=== PATIENT | male | born 1980 | race Caucasian/White ===

== ENCOUNTER 2017-06-09 14:34 | Inpatient (IN) ==
--- NOTE | 2017-06-09 18:13 | Emergency Department Note ---
Disposition Clinical Impression: Facial cellulitis Disposition: Admitted As Inpatient Condition: Good Skin/Abscess/FB HPI Chief complaint: ED Skin/Abscess/Foreign Body Stated complaint: Lip And Facial Swelling from PCP/possible abscess Time Seen by Provider: 06/09/17 14:38 Source: patient Mode of arrival: private vehicle Limitations: no limitations Nursing Notes Reviewed: Yes Vital Signs Reviewed: Yes HPI Narrative: 36-year-old male history of type 2 diabetes who presents to the ER with a chief complaint of right facial swelling. Patient states that on Friday he noticed a bump on his right lip. He states there was some redness there. He was seen at urgent care and was given Keflex and clindamycin to take. He states that he had 4 doses and saw his primary care provider today who was concerned for possible abscess formation developing and sent him here for evaluation. Patient reports pain to the right upper lip and over his maxillary sinus. Denies fevers at home. No nausea vomiting or diarrhea. Has been compliant with his antibiotics. No other complaints. Pt Subjective Complaint: lesion Onset (ago): day(s) Location: face Severity: moderate Quality: aching Consistency: constant Improves with: none Worsens with: palpation Context: none Associated symptoms: Denies: fever, chills, nausea, vomiting Treatments prior to arrival: antibiotic Home Medications Medication Instructions Recorded Confirmed Exenatide Microspheres [Bydureon 2 mg SQ MO 04/27/15 06/09/17 Pen] Empagliflozin [Jardiance] 10 mg PO QAM 06/09/17 06/09/17 Gabapentin [Neurontin] 600 mg PO HS 06/09/17 06/09/17 Insulin Glargine,Hum.rec.anlog 76 units SQ BID 06/09/17 06/09/17 [Esha Rosenberg] Previous Rx's Medication Instructions Recorded Clindamycin HCl 150 mg PO QID #48 capsule 06/11/17 Clindamycin HCl 300 mg PO QID #48 capsule 06/11/17 Lactobacillus [Culturelle] 1 each PO BID #20 cap.sprink 06/11/17 Mupirocin 1 gm TP BID #1 oin.pf.charlotte 06/11/17 Allergies Allergy/AdvReac Type Severity Reaction Status Date / Time Penicillins [PCN] Allergy Hives Verified 06/09/17 15:36 All systems ED: reviewed and negative except as stated. Constitutional: Denies: fever, chills ENT ED: Denies: congestion Cardiovascular: Denies: chest pain Respiratory: Denies: dyspnea Gastrointestinal: Denies: abdominal pain, nausea, vomiting, diarrhea Past Medical History - Past Medical History Attestation: Yes The following information was validated with the patient. Source: patient Medical history: Reports: diabetes Surgical history: Reports: other Psychiatric history: Reports: depression - Social History Smoking Status: Current some day smoker Smokeless Tobacco Status: No Alcohol use: Reports: occasionally Drug use: Reports: none Physical Exam - General Limitations: no limitations General appearance: alert, in no apparent distress - Head Head exam: atraumatic, normocephalic, normal inspection - Eye Eye exam: Present: normal appearance, EOMI - ENT ENT exam: other (There is soft tissue swelling to the right upper lip and superior to this area.) - Neck Neck exam: Present: normal inspection, full ROM. Absent: tenderness - Chest Chest inspection: Present: normal inspection, symmetric chest wall rise - Respiratory Respiratory exam: Present: normal lung sounds bilaterally - Cardiovascular Cardiovascular exam: Present: regular rate, normal rhythm, normal heart sounds - Abdominal Exam Abdominal exam: Present: soft, Non-Tender. Absent: tenderness, distention, rigidity - Extremities Exam Extremities exam: Present: normal inspection, full ROM - Expanded Upper Extremity Exam Shoulder exam: Present: normal inspection, full ROM Arm exam: Present: normal inspection, full ROM Elbow exam: Present: normal inspection, full ROM Forearm/Wrist exam: Present: normal inspection, full ROM Hand exam: Present: normal inspection, full ROM - Expanded Lower Extremity Exam Hip/Pelvis exam: Present: normal inspection, full ROM Upper leg exam: Present: normal inspection, full ROM Knee exam: Present: normal inspection, full ROM Lower leg exam: Present: normal inspection, full ROM Ankle exam: Present: normal inspection, full ROM Foot/toe exam: Present: normal inspection, full ROM Neurovascular/Tendon exam: Absent: motor deficit, sensory deficit - Neurological Exam Neurological exam: Present: alert, other (GCS 15. Nonfocal neurologic exam.) - Psychiatric Psychiatric exam: Present: normal affect, normal mood - Skin Skin exam: Present: warm, dry, intact, normal color Course Course Narrative: Patient seen and examined. We did do a bedside ultrasound with soft tissue swelling of the right lip. Questionable slight fluid collection. We will obtain a CT scan of the face with IV contrast as well as basic labs. He will likely require admission for failed outpatient therapy and for IV antibiotics for facial cellulitis. - Reevaluation(s) Reevaluation #1: I discussed results of labs with the patient. We are currently waiting for CT scan. He is signed out to the transformer assembler team pending imaging results. Vital Signs Temperature 98.6 F 06/09/17 15:36 Pulse Rate 88 06/09/17 15:36 Respiratory Rate 20 06/09/17 15:36 Blood Pressure 158/93 06/09/17 15:36 O2 Sat by Pulse Oximetry 94 06/09/17 15:36 Temperature 98.7 F 06/11/17 17:12 Pulse Rate 82 06/11/17 17:12 Respiratory Rate 18 06/11/17 17:12 Blood Pressure 119/77 06/11/17 17:12 O2 Sat by Pulse Oximetry 96 06/11/17 17:12 Oxygen Delivery Oxygen Delivery Room Air Skin/Abscess/Foreign Body - MDM Narrative Medical decision making narrative: 36-year-old male presents to the ER due to right facial swelling. Swelling noted to his right upper lip. Afebrile here. There was concern by his PCP for underlying abscess. At the time of handoff the patient was pending a CT scan of his face. Final disposition by transformer assembler team. - Lab Data Lab results reviewed: Yes I reviewed the patient's lab results. Result diagrams: 06/10/17 07:21 06/10/17 05:51 Lab Results 06/09/17 06/09/17 06/09/17 Range/Units 17:45 18:13 18:13 WBC 12.2 H (4.3-11.1) K/mcL RBC 5.39 (4.19-5.50) M/mcL Hgb 15.5 (12.9-16.9) g/dL Hct 47.8 (37.5-50.1) % MCV 88.7 (83.0-100.0) fL MCH 28.8 (28.0-33.3) pg MCHC 32.4 (31.6-35.5) g/dL RDW 13.2 (11.5-14.5) % Plt Count 256 (140-400) K/mcL MPV 10.1 (9.4-12.4) fL Immature Gran % 0.4 (0-4) % Seg Neutrophils % 69.5 % Lymphocytes % 22.1 % Monocytes % 7.0 % Eosinophils % 0.6 % Basophils % 0.4 % Neutrophils # 8.5 (1.6-8.9) K/mcL Lymphocytes # 2.7 (0.6-4.6) K/mcL Monocytes # 0.9 (0.0-1.3) K/mcL Eosinophils # 0.1 (0.0-0.6) K/mcL Basophils # 0.1 (0.0-0.2) K/mcL Sodium 136 (136-145) mEq/L Potassium 4.3 (3.5-4.5) mEq/L Chloride 102 (98-109) mEq/L Carbon Dioxide 22 (19-29) mEq/L BUN 13 (8-26) mg/dL Creatinine 0.82 (0.72-1.25) mg/dL Est GFR ( Amer) > 60 (> 60) Est GFR (Non-Af Amer) > 60 (> 60) BUN/Creatinine Ratio 16 (6-26) Glucose 170 H (70-99) mg/dL Calculated Osmolality 286 (280-300) Calcium 9.8 (8.6-10.8) mg/dL Herpes Simplex Source R upper lip HSV I Not Detected (Not Detect) HSV II Not Detected (Not Detect)
--- NOTE | 2017-06-09 18:13 | Emergency Department Note ---
START Narrative - START START: I examined this patient and my medical decision-making was reviewed with the Resident Physician. I agree with the documented findings, disposition and treatment plan as described except to the extent set forth below. Patient eating of any swelling of his lip. Seen a couple days ago and started on clindamycin and Keflex. It is getting worse. Sinemet his PCP. No fever. Exam shows erythema and swelling to the right upper lip area. No drainage. Plan. Will check CT. Wound and HSV culture sent.
[2017-06-09 18:23] LABS: Basophils # 0.1 K/mcL (0.0-0.2); Basophils % 0.4 %; Eosinophils # 0.1 K/mcL (0.0-0.6); Eosinophils % 0.6 %; Hematocrit 47.8 % (37.5-50.1); Hemoglobin 15.5 g/dL (12.9-16.9); Immature Granulocytes % 0.4 % (0-4); Lymphocytes # 2.7 K/mcL (0.6-4.6); Lymphocytes % 22.1 %; Mean Corpuscular HGB Conc 32.4 g/dL (31.6-35.5); Mean Corpuscular Hemoglobin 28.8 pg (28.0-33.3); Mean Corpuscular Volume 88.7 fL (83.0-100.0); Mean Platelet Volume 10.1 fL (9.4-12.4); Monocytes # 0.9 K/mcL (0.0-1.3); Neutrophils # 8.5 K/mcL (1.6-8.9); Platelet Count 256 K/mcL (140-400); Red Blood Count 5.39 M/mcL (4.19-5.50); Red Cell Distribution Width 13.2 % (11.5-14.5); Segmented Neutrophils % 69.5 %
[2017-06-09 18:32] LABS: BUN/Creatinine Ratio 16 (6-26); Blood Urea Nitrogen 13 mg/dL (8-26); Calcium 9.8 mg/dL (8.6-10.8); Carbon Dioxide 22 mEq/L (19-29); Chloride 102 mEq/L (98-109); Glucose 170 mg/dL (70-99); Osmolality,Calculated 286 (280-300); Potassium 4.3 mEq/L (3.5-4.5); Sodium 136 mEq/L (136-145); eGFR For African Americans > 60 (> 60); eGFR For Non-African Americans > 60 (> 60)
[2017-06-09] MEDS ORDERED: Clindamycin 600 MG/50 ML 600 MG/50 ML IV.SOLN IVPB ONE (18:39)
[2017-06-09] MEDS ORDERED: Vancomycin 2,000 MG in D5% in Water 500 ML IVPB ONE (18:39)
--- NOTE | 2017-06-09 20:04 | Emergency Department Note ---
Disposition Clinical Impression: Facial cellulitis Disposition: Admitted As Inpatient Condition: Good Referrals: NONE,PCP [Primary Care Provider] - Forms: ED Satisfaction Letter Time of Disposition: 20:11 Skin/Abscess/FB HPI Chief complaint: ED Skin/Abscess/Foreign Body Stated complaint: Lip And Facial Swelling from PCP/possible abscess Time Seen by Provider: 06/09/17 14:38 Source: patient Mode of arrival: private vehicle Limitations: no limitations Nursing Notes Reviewed: Yes Vital Signs Reviewed: Yes HPI Narrative: Patient received on sogn-out from the day team. For complete history and physical, please refer to the note performed by Dr. Doran and Dr. Gaytan. In brief: Mr. Hayden, 36-year-old male, presents from home for evaluation of facial swelling and redness. This began 3 days ago and he was placed on Keflex and clindamycin. His symptoms have worsened and expanded despite compliance with these antibodies. He has been afebrile. History of type 2 diabetes. Pt Subjective Complaint: lesion Location: face Severity: moderate Improves with: none Worsens with: palpation Associated symptoms: Denies: fever, chills, nausea, vomiting Home Medications Medication Instructions Recorded Confirmed Exenatide Microspheres [Bydureon 2 mg SQ MO 04/27/15 06/09/17 Pen] Empagliflozin [Jardiance] 10 mg PO QAM 06/09/17 06/09/17 Gabapentin [Neurontin] 600 mg PO HS 06/09/17 06/09/17 Insulin Glargine,Hum.rec.anlog 76 units SQ BID 06/09/17 06/09/17 [Esha Rosenberg] Previous Rx's Medication Instructions Recorded Clindamycin HCl [Cleocin HCl] 300 mg PO TID #21 capsule 06/08/17 cephALEXin [Keflex] 500 mg PO TID #21 capsule 06/08/17 Allergies Allergy/AdvReac Type Severity Reaction Status Date / Time Penicillins [PCN] Allergy Hives Verified 06/09/17 15:36 All systems ED: reviewed and negative except as stated. Review of Systems: As Per HPI Constitutional: Denies: fever, chills ENT ED: Denies: congestion Cardiovascular: Denies: chest pain Respiratory: Denies: dyspnea Gastrointestinal: Denies: abdominal pain, nausea, vomiting, diarrhea Past Medical History - Past Medical History Medical history: Reports: diabetes Surgical history: Reports: other Psychiatric history: Reports: depression - Social History Smoking Status: Current some day smoker Smokeless Tobacco Status: No Alcohol use: Reports: occasionally Drug use: Reports: none Physical Exam - General Limitations: no limitations General appearance: alert, in no apparent distress Course Course Narrative: Patient received on sogn-out from the day team. For complete history and physical, please refer to the note performed by Dr. Doran and Dr. Gaytan. Patient's vital signs remained stable. CT face with contrast shows soft tissue swelling and edema consistent with cellulitis. No CT evidence of abscess. Bedside ultrasound performed by Dr. Doran showed no evidence of subcutaneous fluid and was consistent with a lack of an abscess. Patient was placed on IV vancomycin and clindamycin by the day team. I spoke with the admitting hospitalist, Dr. Noguera, who agrees to accept the patient continued IV antibiotics. Face CT 06/09/17 17:46 IMPRESSION: Focal soft tissue swelling and edema involving the right upper lip, but without evidence of a rim enhancing abscess. Findings are most compatible with cellulitis. Mildly prominent submandibular lymph nodes, especially on the right, presumably reactive. These should be followed clinically to resolution. D/ / Hector Grace MD / Hector Grace MD Interpreting Provider: Hector Grace MD Vital Signs Temperature 98.6 F 06/09/17 15:36 Pulse Rate 88 06/09/17 15:36 Respiratory Rate 20 06/09/17 15:36 Blood Pressure 158/93 06/09/17 15:36 O2 Sat by Pulse Oximetry 94 06/09/17 15:36 Temperature 99.9 F H 06/09/17 18:37 Pulse Rate 91 06/09/17 19:55 Respiratory Rate 14 06/09/17 19:55 Blood Pressure 157/98 06/09/17 19:55 O2 Sat by Pulse Oximetry 97 06/09/17 19:55 Oxygen Delivery Oxygen Delivery Room Air Skin/Abscess/Foreign Body - Lab Data Result diagrams: 06/09/17 18:13 06/09/17 18:13 Lab Results 09/18/17 09/18/17 Range/Units 18:13 18:13 WBC 12.2 H (4.3-11.1) K/mcL RBC 5.39 (4.19-5.50) M/mcL Hgb 15.5 (12.9-16.9) g/dL Hct 47.8 (37.5-50.1) % MCV 88.7 (83.0-100.0) fL MCH 28.8 (28.0-33.3) pg MCHC 32.4 (31.6-35.5) g/dL RDW 13.2 (11.5-14.5) % Plt Count 256 (140-400) K/mcL MPV 10.1 (9.4-12.4) fL Immature Gran % 0.4 (0-4) % Seg Neutrophils % 69.5 % Lymphocytes % 22.1 % Monocytes % 7.0 % Eosinophils % 0.6 % Basophils % 0.4 % Neutrophils # 8.5 (1.6-8.9) K/mcL Lymphocytes # 2.7 (0.6-4.6) K/mcL Monocytes # 0.9 (0.0-1.3) K/mcL Eosinophils # 0.1 (0.0-0.6) K/mcL Basophils # 0.1 (0.0-0.2) K/mcL Sodium 136 (136-145) mEq/L Potassium 4.3 (3.5-4.5) mEq/L Chloride 102 (98-109) mEq/L Carbon Dioxide 22 (19-29) mEq/L BUN 13 (8-26) mg/dL Creatinine 0.82 (0.72-1.25) mg/dL Est GFR ( Amer) > 60 (> 60) Est GFR (Non-Af Amer) > 60 (> 60) BUN/Creatinine Ratio 16 (6-26) Glucose 170 H (70-99) mg/dL Calculated Osmolality 286 (280-300) Calcium 9.8 (8.6-10.8) mg/dL Attestation Statement - Attestation Attestation: I, Ayaan Daniels DO, examined this patient [id number] and my medical decision-making was reviewed with Dr. Shai Varghese, Resident Physician. I agree with the documented findings, disposition and treatment plan as described except to the extent set forth below. Please see my progress notes for details. 28-year-old male presents to emergency room for evaluation of facial cellulitis of the right upper lip. He does wear a nasal CPAP machine at night. Over the last several days he said redness swelling and irritation to the right upper lip. He has no signs of angioedema or periorbital swelling. He has no stridor no trismus. Lungs are clear heart is regular. CT imaging of the face confirms cellulitis with no focal abscess accumulation. Patient on Keflex and clindamycin as outpatient treatment course it appears to fail this treatment course at this time.. Patient repeat evaluation this is no visible signs of herpetic lesions there is tenderness and redness. CT imaging is stable this time was otherwise unremarkable. Vancomycin and clindamycin given here. See detailed documentation as a physician's note of the medical intervention, physical exam, medical decision making process in consultation to the hospitalist for admission. Patient is otherwise stable no distress and comfortable with the projected plan.
[2017-06-09] MEDS ORDERED: *HR* Dextrose 50 % in Water (Syg) 50 ML SYRINGE IVP PRN (20:46)
[2017-06-09] MEDS ORDERED: D5% in Water 1,000 ML IVC PRN (20:46)
[2017-06-09] MEDS ORDERED: Ondansetron 4 MG/2 ML VIAL IVP PRN (20:46)
[2017-06-09] MEDS ORDERED: *HR* Morphine 2 MG/ML SYRINGE IVP PRN (20:46)
[2017-06-09] MEDS ORDERED: Dextrose Gel 15 GM PO PRN ×2 (20:46)
[2017-06-09] MEDS ORDERED: Naloxone 0.4 MG/ML INJ IVP PRN (20:46)
--- NOTE | 2017-06-09 21:06 | Internal Med History&Physical ---
Date of Encounter: 06/09/17 Time of Encounter: 20:45 Assessment and Plan (1) Cellulitis, lip Current visit: No Status: Acute Acute cellulitis of the right upper lip Continue IV Levaquin, IV Flagyl, vancomycin Morphine as needed for pain, Tylenol as needed Cultures - pending Facial CT - soft tissue swelling and edema involving the right upper lip without abscess, prominent submandibular lymph nodes, likely reactive Repeat labs in a.m. (2) Diabetes Current visit: Yes Status: Chronic Diabetes mellitus type 2, insulin-dependent, hyperglycemia Continue sliding scale insulin, glucose checks, Levemir Qualifiers: Diabetes mellitus type: type 2 Diabetes mellitus complication status: without complication Diabetes mellitus intermediate school teacher insulin use: with intermediate school teacher use Qualified Code(s): E11.9 - Type 2 diabetes mellitus without complications ; Z79.4 - termite control servicer (current) use of insulin (3) RICKY (obstructive sleep apnea) Current visit: Yes Status: Chronic Continue CPAP (4) Morbid obesity Current visit: Yes Status: Chronic BMI 50.5 (5) DVT prophylaxis Current visit: Yes Status: Acute Continue heparin subcutaneous Internal Medicine - H&P: HPI Chief complaint: Cellulitis, lip swelling Admitted From: Emergency Dept Plans for Post Hospital Care: Home History of present illness: Mr. Hayden is a 36 year old male with past medical history of RICKY and diabetes. He presents to the ED with complaints of cellulitis and swelling of his upper lip. Examined and the room. Patient is awake and alert. Not in any distress. Able to provide all history. No family members at bedside. Patient states he initially developed a pimple over his upper lip on the right side. A few days ago he apparently scratched the pimple. A scab formed and gradually his upper lip started to swell. He also complains of mild pain over right side of his face. He denies having any dental abscess. He denies having any other dental procedures done recently. Symptoms started about 4 days ago and have gradually worsened. He denies fever or chest pain or shortness of breath. He states lip pain and swelling and redness have worsened. He initially went to urgent care and was given clindamycin by mouth. Symptoms have not improved. He decided come to the ED. Initial workup in the ED is negative except for mildly elevated white count. CT of facial bones shows focal soft tissue swelling and edema involving the right upper lip without any abscess. Some mild prominent submandibular lymph nodes also present, likely reactive. Patient will need IV antibiotics. CODE STATUS full code. Past Med Surg Social Fam HX - Past Medical History Medical history: diabetes Psychiatric history: depression - Past Surgical History Surgical History: other - Social History Smoking Status: Current some day smoker Smokeless Tobacco Status: No Alcohol use: occasionally Drug use: none Internal Medicine - H&P: Meds Exenatide Microspheres [Bydureon Pen] 2 mg SQ MO 04/27/15 [History] Clindamycin HCl [Cleocin HCl] 300 mg PO TID #21 capsule 06/08/17 [Rx] cephALEXin [Keflex] 500 mg PO TID #21 capsule 06/08/17 [Rx] Empagliflozin [Jardiance] 10 mg PO QAM 06/09/17 [History] Gabapentin [Neurontin] 600 mg PO HS 06/09/17 [History] Insulin Glargine,Hum.rec.anlog [Toujeo Solostar] 76 units SQ BID 06/09/17 [ History] 3 Allergy/AdvReac Type Severity Reaction Status Date / Time Penicillins [PCN] Allergy Hives Verified 06/09/17 15:36 All Systems PM: A 10-system review of systems was performed and is negative for pertinent findings except as documented above in the HPI. - Constitutional Constitutional: no fatigue, no fever(s), no weakness - EENT Eyes: no blurry vision Nose, mouth and throat: facial pain, lip swelling (Right side right side), no dental pain, no mouth pain, no nasal congestion, no nasal obstruction, no sore throat, no throat swelling, no tongue swelling - Cardiovascular Cardiovascular ROS IM: no chest pain, no diaphoresis, no dyspnea, no dyspnea on exertion, no edema, no lightheadedness, no orthopnea, no palpitations, no syncope - Respiratory Respiratory: no cough, no dyspnea, no hemoptysis, no dyspnea on exertion, no wheezing, no chest congestion - Gastrointestinal Gastrointestinal: no abdominal pain, no belching, no bloating, no cramping, no diarrhea, no hematemesis, no hematochezia, no nausea, no vomiting - Genitourinary Genitourinary ROS male: no dysuria - Musculoskeletal Musculoskeletal ROS IM: no back pain - Neurological Neurological ROS: no abnormal gait, no confusion, no dizziness, no loss of vision, no numbness, no tingling - Constitutional Vitals: Temp Pulse Resp BP Pulse Ox 99.9 F H 91 14 157/98 97 06/09/17 18:37 06/09/17 19:55 06/09/17 19:55 06/09/17 19:55 06/09/17 19:55 General appearance: Present: cooperative, A&O X 3, morbidly obese, pleasant, no acute distress, answers questions appropriately - Head Head exam: Present: atraumatic - Eye Eye exam: Present: EOMI - ENT ENT exam: Present: mucous membranes moist Additional comments: Right upper lip swelling and tenderness and erythema. No discharge. Mild right facial tenderness. - Expanded ENT Exam Mouth exam: Present: tongue normal. Absent: laceration Teeth exam: Absent: dental caries, fractured tooth # - Respiratory Respiratory exam: Present: CTAB. Absent: accessory muscle use, rales, rhonchi, wheezes, tachypnea - Cardiovascular Cardiovascular exam: Present: RRR, +S1, +S2 - GI/Abdominal GI/Abdominal exam: Present: soft. Absent: distended, firm, guarding, tenderness - Extremities Exam Extremities exam: Present: radial pulses palpable and symmetrical. Absent: calf tenderness, cyanotic, pedal edema - Neurological Exam Neurological exam: Present: alert, oriented X3, no focal deficits. Absent: facial droop, speech deficit Internal Med - H&P Results - Labs CBC & Chem 7: 06/09/17 18:13 06/09/17 18:13
[2017-06-09] MEDS ORDERED: Levofloxacin 750 MG/150 ML 750 MG/150 ML BAG IVPB SCH (22:00)
[2017-06-09] MEDS ORDERED: Vancomycin 1,250 MG in D5% in Water 250 ML IVPB SCH (22:00)
[2017-06-09] MEDS: Insulin DETEMIR 100 UNIT/ML X5UNITS SQ SCH (22:44)
[2017-06-09] MEDS: Gabapentin 300 MG CAPSULE PO SCH (22:44)
[2017-06-09] MEDS: Insulin LISPRO 300 UNITS/3 ML VIAL SQ SCH (22:45)
[2017-06-09] MEDS: 0.9 % Sodium Chloride 1,000 ML IVC SCH (22:48)
[2017-06-09] MEDS: *HR* Heparin 5,000 UNIT/ML VIAL SQ SCH (23:59)
[2017-06-10] MEDS: MetroNIDAZOLE 500 MG/100 ML 500 MG/100 ML BAG IVPB SCH ×2 (00:35→08:22)
[2017-06-10 01:26] LABS: Hemoglobin A1C 11.2 %
[2017-06-10 06:31] LABS: INR 1.1; Prothrombin Time 11.8 Seconds (9.4-12.1)
[2017-06-10] MEDS: Famotidine 20 MG/2 ML VIAL IVP SCH ×2 (06:34→18:29)
[2017-06-10] MEDS: Acetaminophen 325 MG TABLET PO PRN ×2 (06:38→15:03)
[2017-06-10 06:44] LABS: BUN/Creatinine Ratio 17 (6-26); Blood Urea Nitrogen 13 mg/dL (8-26); Calcium 9.4 mg/dL (8.6-10.8); Carbon Dioxide 21 mEq/L (19-29); Chloride 105 mEq/L (98-109); Glucose 113 mg/dL (70-99); Osmolality,Calculated 289 (280-300); Potassium 3.7 mEq/L (3.5-4.5); Sodium 139 mEq/L (136-145); eGFR For African Americans > 60 (> 60); eGFR For Non-African Americans > 60 (> 60)
[2017-06-10 08:15] LABS: Basophils % 0.5 %; Eosinophils # 0.1 K/mcL (0.0-0.6); Eosinophils % 0.9 %; Hematocrit 44.5 % (37.5-50.1); Hemoglobin 14.5 g/dL (12.9-16.9); Immature Granulocytes % 0.6 % (0-4); Immature Platelets 4.7 % (1.1-6.1); Lymphocytes # 2.3 K/mcL (0.6-4.6); Lymphocytes % 30.1 %; Mean Corpuscular HGB Conc 32.6 g/dL (31.6-35.5); Mean Corpuscular Hemoglobin 28.6 pg (28.0-33.3); Mean Corpuscular Volume 87.8 fL (83.0-100.0); Mean Platelet Volume 10.9 fL (9.4-12.4); Monocytes # 0.8 K/mcL (0.0-1.3); Neutrophils # 4.5 K/mcL (1.6-8.9); Platelet Count 224 K/mcL (140-400); Red Blood Count 5.07 M/mcL (4.19-5.50); Red Cell Distribution Width 13.3 % (11.5-14.5); Segmented Neutrophils % 57.9 %
[2017-06-10] MEDS: Insulin DETEMIR 100 UNIT/ML X5UNITS SQ SCH ×2 (08:24→22:01)
[2017-06-10] MEDS: Insulin LISPRO 300 UNITS/3 ML VIAL SQ SCH ×4 (08:24→21:05)
[2017-06-10] MEDS: *HR* Heparin 5,000 UNIT/ML VIAL SQ SCH ×2 (08:24→16:46)
[2017-06-10] MEDS: Vancomycin 2,000 MG in D5% in Water 500 ML IVPB SCH ×2 (08:40→18:28)
[2017-06-10 10:12] LABS: HSV 2 DNA Not Detected (Not Detect)
--- NOTE | 2017-06-10 15:32 | Internal Med Progress Note ---
Date of Encounter: 06/10/17 Time of Encounter: 10:20 - Assessment and plan (1) Cellulitis, lip Current Visit: Yes Status: Acute Assessment and plan: Cellulitis involving the upper lip. Continue IV antibiotics. No abscesses identified on CT scan. leukocytosis resolved. Will continue IV antibiotics for another day and transitioned to oral antibiotics tomorrow. Moderate risk for complications. (2) Essential hypertension Current Visit: Yes Status: Acute Assessment and plan: Patient has had elevated blood pressure intermittently since last night. No prior history of hypertension. He does have underlying diabetes. We will start treatment with lisinopril. (3) Facial cellulitis Current Visit: Yes Status: Acute (4) DVT prophylaxis Current Visit: Yes Status: Acute Assessment and plan: With subcutaneous heparin (5) Diabetes Current Visit: Yes Status: Chronic Assessment and plan: Patient takes Toujeo at home. We will adjust Levemir dosage accordingly. Continue sliding scale coverage and monitor blood sugars closely. Qualifiers: Diabetes mellitus type: type 2 Diabetes mellitus complication status: without complication Diabetes mellitus extermination inspector insulin use: with extermination inspector use Qualified Code(s): E11.9 - Type 2 diabetes mellitus without complications ; Z79.4 - MCC (current) use of insulin (6) RICKY (obstructive sleep apnea) Current Visit: Yes Status: Chronic Assessment and plan: CPAP while sleeping (7) Morbid obesity Current Visit: Yes Status: Chronic - Subjective Interval history: Patient has noted not much improvement in size of swelling or erythema of the right edge of the upper lip. It did not get any worse either. He does report much improved pain and soreness. No fever or chills. - Constitutional Vitals: Temp Pulse Resp BP Pulse Ox 98.5 F 77 15 158/92 96 06/10/17 14:55 06/10/17 14:55 06/10/17 14:55 06/10/17 14:55 06/10/17 14:55 General appearance: Present: cooperative, A&O X 3, morbidly obese, pleasant, no acute distress, answers questions appropriately - Eye Eye exam: Present: EOMI, PERRL, conjuntiva pink, sclera anicteric - ENT Additional comments: Erythema and swelling noted over the right margin of the upper lip - Neck Neck exam general surgery: Present: supple, trachea midline. Absent: lymphadenopathy - Respiratory Respiratory exam: Present: CTAB. Absent: accessory muscle use, rales, rhonchi, wheezes - Cardiovascular Cardiovascular exam: Present: RRR, +S1, +S2. Absent: diastolic murmur, gallop, rubs, systolic murmur - GI/Abdominal GI/Abdominal exam: Present: normal bowel sounds, soft, no peritoneal signs. Absent: distended, tenderness - Extremities Exam Extremities exam: Present: warm, radial pulses palpable and symmetrical. Absent : calf tenderness, cyanotic, pedal edema - Neurological Exam Neurological exam: Present: alert, oriented X3, no focal deficits. Absent: facial droop, speech deficit - Skin Skin exam: Present: dry, intact Internal Medicine: Result - Labs CBC & Chem 7: 06/10/17 07:21 06/10/17 05:51 Labs: Short CBC 06/10/17 Range/Units 07:21 WBC 7.7 (4.3-11.1) K/mcL Hgb 14.5 (12.9-16.9) g/dL Hct 44.5 (37.5-50.1) % Plt Count 224 (140-400) K/mcL Neutrophils # 4.5 (1.6-8.9) K/mcL BMP 06/10/17 05:51 Sodium 139 Potassium 3.7 Chloride 105 Carbon Dioxide 21 BUN 13 Creatinine 0.75 Glucose 113 H Calcium 9.4 - ABG Interpretation ABG results: PT/INR, D-dimer PT 11.8 Seconds (9.4-12.1) 06/10/17 05:51 Consult Discharge Plan - Plan Referrals: NONE,PCP [Primary Care Provider] -
[2017-06-10] MEDS: 0.9 % Sodium Chloride 1,000 ML IVC SCH (16:40)
[2017-06-10] MEDS: ceFAZolin 2,000 MG in D5% in Water 100 ML IVPB SCH (16:43)
[2017-06-10 20:38] LABS: Bilirubin,Urine Negative (Negative); Blood,Urine Negative (Negative); Clarity,Urine Clear (Clear); Color,Urine Yellow (Yellow); Glucose,Urine (UA) >=1000 mg/dL (Normal); Ketones,Urine Negative (Negative); Leukocyte Esterase,Urine Negative (Negative); Nitrite,Urine Negative (Negative); PH,Urine 5.5 pH Units (5.0-8.0); Protein,Urine Negative (Neg-Trace); Specific Gravity,Urine > 1.030 (1.010-1.025); Urobilinogen,Urine Normal (Normal)
[2017-06-10] MEDS: Gabapentin 300 MG CAPSULE PO SCH (20:42)
[2017-06-11] MEDS: *HR* Heparin 5,000 UNIT/ML VIAL SQ SCH ×2 (00:41→08:41)
[2017-06-11] MEDS: ceFAZolin 2,000 MG in D5% in Water 100 ML IVPB SCH (00:41)
[2017-06-11] MEDS: Vancomycin 2,000 MG in D5% in Water 500 ML IVPB SCH (06:11)
[2017-06-11] MEDS: Famotidine 20 MG/2 ML VIAL IVP SCH (06:11)
[2017-06-11] MEDS: Insulin LISPRO 300 UNITS/3 ML VIAL SQ SCH ×2 (08:41→12:29)
[2017-06-11] MEDS: Insulin DETEMIR 100 UNIT/ML X5UNITS SQ SCH (10:08)
--- NOTE | 2017-06-11 11:50 | ENT - Procedure Note ---
Date of procedure: 06/11/17 Procedure: Procedure: Incision and drainage of facial abscess Preoperative diagnosis: Right lip abscess Postoperative diagnosis: Same Specimens: Aerobic wound culture right lip abscess Consent: The following procedure is recommended for the patient: Incision and drainage of right facial abscess. Risks, benefits, and alternatives to the procedure were discussed with the patient the bedside. Patient understands the risks including but not limited to bleeding, infection, reaccumulation of the abscess, need for further surgery and has agreed to proceed with the procedure at the bedside. Procedure in detail: 4 mL of 1% lidocaine with epinephrine was injected in the area surrounding the right upper lip abscess. After adequate time was given for vasoconstriction as well as anesthesia the area, area was prepped and draped in the usual fashion. Timeout was performed and patient was identified by name and date of as well as procedure being performed. 11 blade was then used to keon area over the abscess where there was a small pustule. Thick yellow purulence was obtained. Hemostat was then used to open up the abscess pockets through the incision site. Cultures were taken of the purulent and sent for aerobic culture. Pressure was placed on the abscessed area to help release any purulence within these opened pockets. Once adequate drainage was obtained, a small piece of iodoform gauze was then placed within the abscess pocket. Approximately 5 cm of quarter inch gauze was placed within incision. Tail of the gauze was taped to the right cheek. Patient tolerated this procedure well.
--- NOTE | 2017-06-11 12:20 | Discharge Summary ---
Date of Encounter: 06/11/17 Time of Encounter: 12:17 - Discharge Diagnosis (1) Cellulitis, lip Priority: Primary Status: Acute (2) Essential hypertension Priority: Secondary Status: Acute (3) Facial cellulitis Priority: Secondary Status: Acute (4) DVT prophylaxis Priority: Secondary Status: Acute (5) Diabetes Priority: Secondary Status: Chronic Qualifiers: Diabetes mellitus type: type 2 Diabetes mellitus complication status: without complication Diabetes mellitus correction insulin use: with correction use Qualified Code(s): E11.9 - Type 2 diabetes mellitus without complications ; Z79.4 - residential (current) use of insulin (6) RICKY (obstructive sleep apnea) Priority: Secondary Status: Chronic (7) Morbid obesity Priority: Secondary Status: Chronic - Discharge Medications Prescriptions: Clindamycin HCl 150 mg PO QID #48 capsule Clindamycin HCl 300 mg PO QID #48 capsule Lactobacillus [Culturelle] 1 each PO BID #20 cap.sprink Mupirocin 1 gm TP BID #1 oin.pf.[place] Home Medications: Exenatide Microspheres [Bydureon Pen] 2 mg SQ MO 04/27/15 [History] Empagliflozin [Jardiance] 10 mg PO QAM 06/09/17 [History] Gabapentin [Neurontin] 600 mg PO HS 06/09/17 [History] Insulin Glargine,Hum.rec.anlog [Toujeo Solostar] 76 units SQ BID 06/09/17 [ History] Clindamycin HCl 150 mg PO QID #48 capsule 06/11/17 [Rx] Clindamycin HCl 300 mg PO QID #48 capsule 06/11/17 [Rx] Lactobacillus [Culturelle] 1 each PO BID #20 cap.sprink 06/11/17 [Rx] Mupirocin 1 gm TP BID #1 oin.pf.[place] 06/11/17 [Rx] Allergies/Adverse Reactions: 3 Allergy/AdvReac Type Severity Reaction Status Date / Time Penicillins [PCN] Allergy Hives Verified 06/09/17 15:36 Procedures/tests Complete & Pending: Procedures Performed prior 72 hours Category Date Time Status EKG [ECG 12 lead ECG] [ECG] Routine Y 06/09/17 20:53 Ordered Date of admission: 06/09/17 20:46 Primary care physician: PCP NONE Consults: 06/11/17 11:34 Consult to ENT [CONS] Routine Consulting Provider: DAVY Adair Reason for Consult: Lip abscess Time Notified: 11:34 Call Completed: Yes Discharging clinician: Sarbjit Roman Anticipated date of discharge: 06/11/17 - Patient Status Disposition: Home, Self-Care Condition: Good Functional capacity at discharge: independent ambulation Overall status at discharge: patient is progressing back to baseline - Discharge Instructions Instructions: Cellulitis (DC) Follow Up With: Adriana Tapia DO [Non-Partnered Physician] - 06/12/17 3:15 pm Forms: Inpatient Work/School Release Additional Instructions: Follow up with ENT later this week - Diet and Activity Activity: increase activity as tolerated Diet: diabetic diet Hospital course: Mr. Hayden is a 36 year old male patient with history of diabetes mellitus and was hospitalized here with swelling and erythema involving the right upper lip. He was treated for facial cellulitis with IV antibiotics. While his symptoms initially improved, he developed an abscess in this region and ENT was consulted. Patient underwent incision and drainage today and he has been cleared for discharge by ENT. He will be discharged home on oral antibiotics and can follow up with his primary care provider and ENT for further management. - Time Spent with Patient Total time spent providing and/or coordinating discharge services: Greater than 30 minutes (40 min) - Constitutional Vitals: Temp Pulse Resp BP Pulse Ox 98.2 F 74 16 108/61 97 06/11/17 11:17 06/11/17 11:17 06/11/17 11:17 06/11/17 11:17 06/11/17 11:17 General appearance: Present: cooperative, A&O X 3, morbidly obese, pleasant, no acute distress, answers questions appropriately - ENT Additional comments: swelling of the right margin of the upper lip improving but with a punctum/ pustule - Neck Neck exam general surgery: Present: supple, trachea midline. Absent: lymphadenopathy - Respiratory Respiratory exam: Present: CTAB. Absent: accessory muscle use, rales, rhonchi, wheezes - Cardiovascular Cardiovascular exam: Present: RRR, +S1, +S2. Absent: diastolic murmur, gallop, rubs, systolic murmur - Extremities Exam Extremities exam: Present: warm, radial pulses palpable and symmetrical. Absent : calf tenderness, cyanotic, pedal edema - Neurological Exam Neurological exam: Present: CN II-XII intact, oriented X3, no focal deficits. Absent: facial droop, speech deficit
[2017-06-11] MEDS ORDERED: Insulin DETEMIR 100 UNIT/ML X5UNITS SQ STA (12:24)
[2017-06-11] MEDS ORDERED: Vancomycin 1,500 MG in D5% in Water 250 ML IVPB SCH (14:00)
[2017-06-11] MEDS ORDERED: Aminoglycoside Consult 1 EACH MC ONE (14:04)
[2017-06-11 17:20] VITALS: BP 119/77
[2017-06-11] MEDS ORDERED: Insulin DETEMIR 100 UNIT/ML X5UNITS SQ SCH (21:00)
--- NOTE | 2017-06-12 10:31 | ENT - Consult Note ---
Date of Encounter: 06/12/17 Time of Encounter: 11:50 Assessment and Plan (1) Facial abscess Status: Acute Patient with an acute abscess developing of the right upper lip. The following procedure was recommended for the patient: Incision and drainage of facial abscess. Risks, benefits, and alternatives to the procedure were discussed with the patient at the bedside. Consent was signed and procedure was performed at bedside without any apparent complication. Please see procedure note. Purulence was obtained and culture was taken at the bedside. Small amount of iodoform packing was placed. Postoperative care instructions were given to the patient. Discussed this patient with the hospitalist is managing the patient's case. I do feel is appropriate that he can be discharged home on by mouth medications given coverage to MRSA and possibly change after cultures that were just taken during the incision and drainage come back. Patient to pull out the packing tomorrow by himself. Patient to follow up in 2-3 days with ENT for recheck of the area. History of Present Illness Consult date: 06/11/17 Reason for ENT Consult: other (Lip abscess) History of present illness: Patient is a 36-year-old male with a past medical history significant for diabetes and obesity the present hospital with swelling of the right upper lip for just over 4 days. Patient initially presented to urgent care and was placed on clindamycin and failed to improve. Patient was admitted for IV antibiotics given his outpatient failure. Over the course of his hospitalization patient developed increased swelling the right upper lip and developed a pustule. Initial CT scan of the patient's face did not show any abscess. Past Med Surg Social Fam HX - Past Medical History Medical history: diabetes Psychiatric history: depression - Past Surgical History Surgical History: other - Social History Smoking Status: Current some day smoker Smokeless Tobacco Status: No Alcohol use: occasionally Drug use: none Medications and Allergies Exenatide Microspheres [Bydureon Pen] 2 mg SQ MO 04/27/15 [History] Empagliflozin [Jardiance] 10 mg PO QAM 06/09/17 [History] Gabapentin [Neurontin] 600 mg PO HS 06/09/17 [History] Insulin Glargine,Hum.rec.anlog [Esha Rosenberg] 76 units SQ BID 06/09/17 [ History] Clindamycin HCl 150 mg PO QID #48 capsule 06/11/17 [Rx] Clindamycin HCl 300 mg PO QID #48 capsule 06/11/17 [Rx] Lactobacillus [Culturelle] 1 each PO BID #20 cap.sprink 06/11/17 [Rx] Mupirocin 1 gm TP BID #1 oin.pf.[place] 06/11/17 [Rx] 3 Allergy/AdvReac Type Severity Reaction Status Date / Time Penicillins [PCN] Allergy Hives Verified 06/09/17 15:36 ENT - ROS - Constitutional Constitutional ROS: as per HPI ENT Exam Initial Vital Signs Temp Pulse Resp BP Pulse Ox 98.6 F 88 20 158/93 94 06/09/17 15:36 06/09/17 15:36 06/09/17 15:36 06/09/17 15:36 06/09/17 15:36 - General physical appearance well developed, well nourished, obese - Eyes PERRL, normal ocular movement - ENT normal pinna, normal nares, Other (Increasing erythema and edema around the lip specifically the right side with small pustule of the skin above the lip. This is outside the vermilion border. Some minimal fluctuance with palpation of the lip. Teeth are in good repair.) - Neck no masses, trachea midline - Respiratory normal expansion, normal respiratory effort Exam Initial Vital Signs Temp Pulse Resp BP Pulse Ox 98.6 F 88 20 158/93 94 06/09/17 15:36 06/09/17 15:36 06/09/17 15:36 06/09/17 15:36 06/09/17 15:36 Results - Labs 06/10/17 07:21 06/10/17 05:51 Abnormal lab results Glucose 113 mg/dL (70-99) H 06/10/17 05:51 POC Glucose 187 (58-89) H 06/11/17 11:18 Hemoglobin A1c 11.2 % (-5.6) H 06/09/17 22:28 Ur Specific [place] > 1.030 (1.010-1.025) H 06/10/17 20:20 Urine Glucose (UA) >=1000 mg/dL (Normal) H 06/10/17 20:20 Vancomycin Trough 8.1 mcg/mL (10-20) L 06/11/17 06:08 All other labs normal. Consult Discharge Plan - Plan Instructions: Cellulitis (DC) Additional Instructions: Follow up with ENT later this week Referrals: Adriana Tapia DO [Non-Partnered Physician] - 06/12/17 3:15 pm Prescriptions: Clindamycin HCl 150 mg PO QID #48 capsule Clindamycin HCl 300 mg PO QID #48 capsule Lactobacillus [Culturelle] 1 each PO BID #20 cap.sprink Mupirocin 1 gm TP BID #1 oin.pf.[place]
== END 2017-06-11 14:05 | disposition home or self-care (01) | DRG 158 ==
LOC: EMEROO 14:34 → 3ANU 14:34 → SUATTDRO 20:46 → 3ANU 21:49
PROVIDERS: ADMIT Family Medicine; ATTEND Internal Medicine

== ENCOUNTER 2020-09-19 12:43 | Observation (INO) ==
[2020-09-19 15:06] LABS: Basophils % 0.4 %; Eosinophils # 0.1 K/mcL (0.0-0.6); Eosinophils % 0.8 %; Hematocrit 45.2 % (37.5-50.1); Immature Granulocytes % 0.5 % (0-4); Lymphocytes # 2.7 K/mcL (0.6-4.6); Lymphocytes % 28.2 %; Mean Corpuscular HGB Conc 33.2 g/dL (31.6-35.5); Mean Corpuscular Hemoglobin 30.5 pg (28.0-33.3); Mean Corpuscular Volume 91.9 fL (83.0-100.0); Mean Platelet Volume 10.3 fL (9.4-12.4); Monocytes # 0.8 K/mcL (0.0-1.3); Monocytes % 8.5 %; Neutrophils # 5.9 K/mcL (1.6-8.9); Platelet Count 228 K/mcL (140-400); Red Blood Count 4.92 M/mcL (4.19-5.50); Segmented Neutrophils % 61.6 %; White Blood Count 9.7 K/mcL (4.3-11.1)
[2020-09-19] MEDS: DilTIAZem 50 MG/50 ML IV.SOLN IVC SCH ×2 (15:12→21:59)
[2020-09-19 15:26] LABS: Alanine Aminotransferase 45 Units/L (7-52); Albumin 3.8 g/dL (3.5-5.7); Albumin/Globulin Ratio 1.3 (1.1-2.2); Alkaline Phosphatase 111 Units/L (34-104); Aspartate Amino Transferase 31 Units/L (13-39); BUN/Creatinine Ratio 21 (6-26); Bilirubin,Total 0.5 mg/dL (0.3-1.0); Blood Urea Nitrogen 13 mg/dL (6-20); Calcium 9.2 mg/dL (8.6-10.3); Carbon Dioxide 29 mEq/L (23-29); Chloride 102 mEq/L (98-107); Glucose 194 mg/dL (70-105); Osmolality,Calculated 291 (280-300); Sodium 138 mEq/L (136-145); Total Protein 6.8 g/dL (6.4-8.9); Troponin I < 0.03 ng/mL (< 0.04); eGFR For African Americans > 60 (> 60); eGFR For Non-African Americans > 60 (> 60)
[2020-09-19 15:41] LABS: Thyroid Stimulating Hormone 3.255 mcIU/mL (0.340-5.600)
[2020-09-19 15:42] LABS: Triiodothyronine (T3) Free 2.87 pg/mL (2.50-3.90)
[2020-09-19] MEDS ORDERED: *HR* Heparin 5,000 UNIT/ML VIAL IVP PRN ×2 (16:48)
[2020-09-19] MEDS ORDERED: *HR* Heparin 5,000 UNIT/ML VIAL IVP ONE (16:48)
[2020-09-19] MEDS ORDERED: Ondansetron ODT 4 MG TAB.RAPDIS SL PRN (16:55)
[2020-09-19] MEDS ORDERED: Naloxone 0.4 MG/ML INJ IVP PRN (16:55)
[2020-09-19 17:17] LABS: Chol/HDL Ratio 5.3 (0-4.9); Cholesterol 195 mg/dL (< 200); HDL Cholesterol 37 mg/dL (40-59); LDL Cholesterol,Calculated 112 mg/dL (< 100); Magnesium 1.8 mg/dL (1.6-2.6); Triglycerides 230 mg/dL (< 150)
[2020-09-19] MEDS ORDERED: Dextrose Gel 15 GM/37.5 ML TUBE PO PRN ×2 (17:32)
[2020-09-19] MEDS ORDERED: *HR* Dextrose 50 % in Water (Vial) 50 ML VIAL IVP PRN (17:32)
[2020-09-19] MEDS ORDERED: D5% in Water 1,000 ML IVC PRN (17:32)
[2020-09-19] MEDS: Heparin 25,000UNIT/250ML 1/2NS 25,000 UNIT/250 ML IV.SOLN IVC SCH (17:35)
[2020-09-19 18:05] LABS: Estimated Average Glucose 220 mg/dl; Hemoglobin A1C 9.3 %
[2020-09-19] MEDS: Insulin DETEMIR 100 UNIT/ML X5UNITS SUBQ SCH (21:33)
[2020-09-20] MEDS: DilTIAZem 50 MG/50 ML IV.SOLN IVC SCH (01:41)
[2020-09-20] MEDS: Heparin 25,000UNIT/250ML 1/2NS 25,000 UNIT/250 ML IV.SOLN IVC SCH ×3 (05:10→15:27)
[2020-09-20 06:09] LABS: Basophils % 0.4 %; Eosinophils # 0.1 K/mcL (0.0-0.6); Eosinophils % 1.1 %; Hematocrit 39.9 % (37.5-50.1); Hemoglobin 13.1 g/dL (12.9-16.9); Immature Granulocytes % 0.9 % (0-4); Lymphocytes # 3.4 K/mcL (0.6-4.6); Lymphocytes % 42.1 %; Mean Corpuscular HGB Conc 32.8 g/dL (31.6-35.5); Mean Corpuscular Hemoglobin 30.3 pg (28.0-33.3); Mean Corpuscular Volume 92.4 fL (83.0-100.0); Mean Platelet Volume 10.2 fL (9.4-12.4); Monocytes # 0.8 K/mcL (0.0-1.3); Monocytes % 9.9 %; Neutrophils # 3.7 K/mcL (1.6-8.9); Platelet Count 194 K/mcL (140-400); Red Blood Count 4.32 M/mcL (4.19-5.50); Red Cell Distribution Width 13.2 % (11.5-14.5); Segmented Neutrophils % 45.6 %; White Blood Count 8.2 K/mcL (4.3-11.1)
[2020-09-20 06:24] LABS: BUN/Creatinine Ratio 25 (6-26); Blood Urea Nitrogen 16 mg/dL (6-20); Calcium 8.5 mg/dL (8.6-10.3); Carbon Dioxide 24 mEq/L (23-29); Chloride 105 mEq/L (98-107); Glucose 128 mg/dL (70-105); Osmolality,Calculated 287 (280-300); Potassium 3.6 mEq/L (3.5-5.1); Sodium 137 mEq/L (136-145); eGFR For African Americans > 60 (> 60); eGFR For Non-African Americans > 60 (> 60)
[2020-09-20] MEDS: Insulin LISPRO 300 UNITS/3 ML VIAL SUBQ SCH ×3 (07:12→17:01)
[2020-09-20] MEDS: Insulin DETEMIR 100 UNIT/ML X5UNITS SUBQ SCH ×2 (08:00→20:10)
[2020-09-20] MEDS ORDERED: Perflutren Lipid Microsphere 1.3 ML in 0.9 % Sodium Chloride 8.7 ML IVP PRN (08:40)
[2020-09-20] MEDS ORDERED: DilTIAZem CD (24hr) 120 MG CAP.ER.24H PO SCH (12:00)
[2020-09-20 21:50] LABS: Adenovirus Not Detected (Not Detect); Bordetella Pertussis Not Detected (Not Detect); Chlamydophila pneumoniae Not Detected (Not Detect); Coronavirus 229E Not Detected (Not Detect); Coronavirus HKU1 Not Detected (Not Detect); Coronavirus NL63 Not Detected (Not Detect); Coronavirus OC43 Not Detected (Not Detect); Human Metapneumovirus Not Detected (Not Detect); Human Rhinovirus/Enterovirus Not Detected (Not Detect); Influenza A Subtype 2009 H1 Not Detected (Not Detect); Influenza B Not Detected (Not Detect); Mycoplasma pneumoniae Not Detected (Not Detect); Parainfluenza Virus 1 Not Detected (Not Detect); Parainfluenza Virus 2 Not Detected (Not Detect); Parainfluenza Virus 3 Not Detected (Not Detect); Parainfluenza Virus 4 Not Detected (Not Detect); Respiratory Syncytial Virus Not Detected (Not Detect); SARS-CoV-2 Not Detected (Not Detect)
[2020-09-21] MEDS: Heparin 25,000UNIT/250ML 1/2NS 25,000 UNIT/250 ML IV.SOLN IVC SCH (02:23)
[2020-09-21 05:36] LABS: Basophils % 0.4 %; Eosinophils # 0.1 K/mcL (0.0-0.6); Eosinophils % 1.3 %; Hematocrit 40.9 % (37.5-50.1); Hemoglobin 13.4 g/dL (12.9-16.9); Immature Granulocytes % 0.4 % (0-4); Lymphocytes # 3.1 K/mcL (0.6-4.6); Lymphocytes % 38.4 %; Mean Corpuscular HGB Conc 32.8 g/dL (31.6-35.5); Mean Corpuscular Hemoglobin 30.9 pg (28.0-33.3); Mean Corpuscular Volume 94.2 fL (83.0-100.0); Mean Platelet Volume 10.8 fL (9.4-12.4); Monocytes # 0.7 K/mcL (0.0-1.3); Monocytes % 8.6 %; Neutrophils # 4.1 K/mcL (1.6-8.9); Platelet Count 194 K/mcL (140-400); Red Blood Count 4.34 M/mcL (4.19-5.50); Red Cell Distribution Width 12.9 % (11.5-14.5); Segmented Neutrophils % 50.9 %
[2020-09-21 05:53] LABS: BUN/Creatinine Ratio 26 (6-26); Blood Urea Nitrogen 16 mg/dL (6-20); Calcium 8.7 mg/dL (8.6-10.3); Carbon Dioxide 21 mEq/L (23-29); Chloride 108 mEq/L (98-107); Glucose 110 mg/dL (70-105); Osmolality,Calculated 288 (280-300); Potassium 3.8 mEq/L (3.5-5.1); Sodium 138 mEq/L (136-145); eGFR For African Americans > 60 (> 60); eGFR For Non-African Americans > 60 (> 60)
[2020-09-21] MEDS ORDERED: DilTIAZem CD (24hr) 120 MG CAP.ER.24H PO SCH ×2 (09:00)
[2020-09-21] MEDS: Insulin LISPRO 300 UNITS/3 ML VIAL SUBQ SCH ×3 (10:01→16:30)
[2020-09-21] MEDS ORDERED: Lidocaine Viscous Oral Soln 15 ML SOLUTION MM PRN (12:42)
[2020-09-21] MEDS ORDERED: *HR* Midazolam HCl 2 MG/2 ML VIAL IVP PRN (12:50)
[2020-09-21] MEDS ORDERED: 0.9 % Sodium Chloride 500 ML IVC ONE (12:50)
[2020-09-21] MEDS ORDERED: *HR* Midazolam HCl 5 MG/5 ML VIAL IVP ONE (13:04)
[2020-09-21] MEDS: *HR* FentaNYL (PF) 100 MCG/2 ML VIAL IVP PRN ×4 (13:10→13:40)
[2020-09-21] MEDS: *HR* Midazolam HCl 5 MG/5 ML VIAL IVP ONE ×3 (13:15→13:40)
[2020-09-21] MEDS ORDERED: lisinopriL 5 MG TABLET PO SCH (14:00)
[2020-09-21] MEDS ORDERED: Apixaban 5 MG TABLET PO SCH (14:00)
[2020-09-21] MEDS: Insulin DETEMIR 100 UNIT/ML X5UNITS SUBQ SCH (14:43)
[2020-09-21 16:10] VITALS: BP 143/86
[2020-09-21] MEDS ORDERED: carvediloL 6.25 MG TABLET PO SCH (17:00)
== END 2020-09-21 17:30 | disposition home or self-care (01) ==
LOC: EMEROOARM 12:43 → 2ANU 12:43 → SUATTDRO 17:57 → 2ANU 18:40
PROVIDERS: ADMIT Internal Medicine; ATTEND Internal Medicine